=== PATIENT | male | born 1965 | race African-American/Black ===

== ENCOUNTER 2016-07-06 12:17 | Emergency (ER) | payer MEDICARE, MEDICAID ==
[~2016-07-06 12:17] MED LIST: Iopamidol 370 76% 100 ML VIAL ONE
[2016-07-06] MEDS ORDERED: Haloperidol Lactate 5 MG/ML VIAL ONE ×2 (12:51→13:11)
[2016-07-06] MEDS ORDERED: Sodium Chloride 0.9% 100 ML ONE (12:58)
[2016-07-06] MEDS ORDERED: Piperacillin/Tazobactam 3.375 GM VIAL ONE (12:58)
[2016-07-06 13:05] LABS: #Lymphocytes 0.7 thou/uL (1.20-3.40); #Monocytes 0.7 thou/uL (0.11-0.59); #Neutrophils 8.5 thou/uL (1.40-6.50); %Basophils 0.4 % (0.0-1.0); %Eosinophils 0.1 % (0.0-10.0); %Lymphocytes 6.8 % (21.0-51.0); %Monocytes 7.1 % (0.0-10.0); %Neutrophils 85.6 % (42.0-75.0); Hemoglobin 11.5 g/dL (14.0-18.0); Mean Corpuscular HGB CONC 33.9 g/dL (32.0-36.0); Mean Corpuscular Volume 94.4 fl (80.0-94.0); Mean Platelet Volume 7.2 fL (7.4-10.4); Platelet Count 184 thou/uL (130-400); RBC Distribution Width 11.5 % (11.5-14.5); Red Blood Cell (RBC) Count 3.58 mill/uL (4.70-6.10); White Blood Cell (WBC) Count 9.9 thou/uL (4.8-10.8)
[2016-07-06] MEDS ORDERED: Lorazepam 2 MG/ML VIAL ONE (13:11)
[2016-07-06 13:26] LABS: ALT (SGPT) 23 U/L (8-55); AST (SGOT) 39 U/L (5-34); Albumin 3.5 g/dL (3.5-5.0); Alkaline Phosphatase 92 U/L (40-150); Anion Gap 14 mmol/L (10-20); BUN (Urea Nitrogen) 11 mg/dL (8.9-20.6); Bilirubin, Total 0.8 mg/dL (0.2-1.2); Calc. Creatinine Clearance 0 mL/min (70-130); Calcium 8.9 mg/dL (7.8-10.44); Carbon Dioxide 28 mmol/L (22-29); Chloride 90 mmol/L (98-107); Estimated GFR-MDRD Greater than 90; Globulin 4.3 g/dL (2.4-3.5); Glucose 124 mg/dL (70-105); Potassium 3.9 mmol/L (3.5-5.1); Protein, Total 7.8 g/dL (6.0-8.3); Sodium 128 mmol/L (136-145)
--- NOTE | 2016-07-06 15:18 | CT ---
CT PELVIS WITH CONTRAST: HISTORY: Blanching and redness of sacrococcygeal area. Rectal bleeding. COMPARISON: CT abdomen and pelvis 12/28/15. FINDINGS: There is diffuse soft tissue anasarca which is worsened from the comparison examination. Urinary bl adder is distended. The soft tissues of the sacrum appear to be intact. No evidence of osteomyelitis. No periostitis or erosions. There is a draining abscess along the inner left thigh measuring 12 x 10 x 1.5 cm with sinus tract n ear the left perineum. No dilated loops of bowel in the pelvis. The aortoiliac contour is normal. There is severe osteoarthritic disease of the right hip with articular surface remodeling and subcho ndral cyst formation. IMPRESSION: 1. No evidence of sacral osteomyelitis. 2. Draining abscess along the inner left thigh measuring 12 x 10 x 1.5 cm with sinus tract near the left perineum. 3. New soft tissue anasarca from the comparison examination. 4. Severe osteoarthritic of the right hip. POS: OFF
== END 2016-07-06 15:57 | disposition short-term general hospital (02) ==
LOC: BURERS 12:17
DX: M72.6 Necrotizing fasciitis (principal); L02.416 Cutaneous abscess of left lower limb
CPT/HCPCS: 36415; 72193; 80053; 83605; 85025; 85652; 87040; 96365; 96367; 96375; J1630; J2060; J2543; J3370; J7050

== ENCOUNTER 2016-07-14 14:11 | Emergency (ER) | payer MEDICARE ==
[2016-07-14 14:47] LABS: #Lymphocytes 1.3 thou/uL (1.20-3.40); #Monocytes 0.5 thou/uL (0.11-0.59); %Basophils 0.5 % (0.0-1.0); %Eosinophils 0.4 % (0.0-10.0); %Lymphocytes 18.6 % (21.0-51.0); %Monocytes 7.8 % (0.0-10.0); %Neutrophils 72.7 % (42.0-75.0); Hemoglobin 7.8 g/dL (14.0-18.0); Mean Corpuscular HGB CONC 32.8 g/dL (32.0-36.0); Mean Corpuscular Hemoglobin 31.9 pg (27.0-31.0); Mean Corpuscular Volume 97.1 fl (80.0-94.0); Mean Platelet Volume 6.4 fL (7.4-10.4); Platelet Count 417 thou/uL (130-400); RBC Distribution Width 12.9 % (11.5-14.5); Red Blood Cell (RBC) Count 2.46 mill/uL (4.70-6.10); White Blood Cell (WBC) Count 6.9 thou/uL (4.8-10.8)
[2016-07-14 14:59] LABS: ALT (SGPT) 47 U/L (8-55); AST (SGOT) 48 U/L (5-34); Acetaminophen Less than 6.0 mcg/mL (10.0-30.0); Albumin 3.3 g/dL (3.5-5.0); Alkaline Phosphatase 90 U/L (40-150); Anion Gap 15 mmol/L (10-20); BUN (Urea Nitrogen) 18 mg/dL (8.9-20.6); Bilirubin, Total 0.3 mg/dL (0.2-1.2); Calc. Creatinine Clearance 0 mL/min (70-130); Calcium 8.3 mg/dL (7.8-10.44); Carbon Dioxide 23 mmol/L (22-29); Chloride 99 mmol/L (98-107); Estimated GFR-MDRD 65; Globulin 4.1 g/dL (2.4-3.5); Glucose 97 mg/dL (70-105); Potassium 4.3 mmol/L (3.5-5.1); Protein, Total 7.4 g/dL (6.0-8.3); Salicylate Less than 8.0 mg/dL (15.0-30.0); Sodium 133 mmol/L (136-145)
[2016-07-14 15:00] LABS: Acetaminophen Less than 6.0 mcg/mL (10.0-30.0); Alcohol Less than 10 mg/dL (Less than 10); Salicylate Less than 8.0 mg/dL (15.0-30.0)
[2016-07-14 15:02] LABS: Amphetamine Not Detected (NotDetected); Barbiturates Screen Not Detected (NotDetected); Benzodiazepine Screen Detected (NotDetected); Cocaine Metabolite Screen Detected (NotDetected); Medtox Control Line Valid? VALID (VALID); Methadone Not Detected (NotDetected); Methamphetamine Not Detected (NotDetected); Opiate Screen Not Detected (NotDetected); Oxycodone Screen Not Detected (NotDetected); Phencyclidine (PCP) Not Detected (NotDetected); THC/Cannabinoid Screen Detected (NotDetected); Tricyclic Screen Not Detected (NotDetected)
[2016-07-14] MEDS ORDERED: Bacitracin Zinc 1 Packet ONE (15:19)
== END 2016-07-14 16:29 ==
LOC: BURERS 14:11
DX: F20.9 Schizophrenia, unspecified (principal); F17.210 Nicotine dependence, cigarettes, uncomplicated
CPT/HCPCS: 36415; 80053; 80306; 80307; 82274; 85025; 99284

== ENCOUNTER → 2023-09-11 | Emergency (ER) | payer MEDICARE | LOC: BURERS 07:18 → EEVIPCON 07:18 | DX: F15.10 Other stimulant abuse, uncomplicated (principal); Z02.89 Encounter for other administrative examinations; F17.210 Nicotine dependence, cigarettes, uncomplicated | CPT/HCPCS: 99282 ==